=== PATIENT | male | born 1955 | race Caucasian/White ===

== ENCOUNTER 2017-03-03 13:08 | Outpatient (CLI) | payer OTHER ==
--- NOTE | 2017-03-04 07:35 | RAD ---
LUMBAR SPINE 3 VIEWS: HISTORY: Low back pain. FINDINGS: There is old compression fracture of L2 vertebral body. Extensive degenerative changes are seen. T here is minimal retrolisthesis of L2 over L3 vertebral bodies. IMPRESSION: 1. Lumbar spondylosis. 2. Old compression fracture of L2 vertebra. POS: [facility]
--- NOTE | 2017-03-05 07:39 | RAD ---
LEFT ANKLE 2 VIEWS: HISTORY: Disability evaluation, left ankle pain. FINDINGS/IMPRESSION: There are postop changes of medial malleolar fracture repair with [address] Degenerative c hanges are noted at the talocrural joint. No acute fracture, dislocation, or bony destruction is se en. Tiny calcaneal spurs are present. POS: [facility]
== END 2017-03-03 13:09 | disposition home or self-care (01) ==
LOC: NAV RAD 13:08
PROVIDERS: ATTEND Family Medicine
DX: Z02.71 Encounter for disability determination (principal); M47.816 Spondylosis without myelopathy or radiculopathy, lumbar region
CPT/HCPCS: 72100